=== PATIENT | male | born 1980 | race Hispanic/Latino ===

== ENCOUNTER 2016-07-02 12:52 | Day surgery (SDC) | payer OTHER ==
[~2016-07-02] VITALS: Ht 167.6 cm; Wt 78.0 kg
[~2016-07-02 12:52] MED LIST: 0.9% Sodium Chloride 1,000 ML IV SCH; NDL40T PO; PANT40TA3 PO; SULF500T5 PO; Sodium Chloride LOK Flush 10 mL Syringe IV PRN; fentaNYL-PF 50 mCg/mL 2 mL Inj IVPUSH PRN
[2016-07-02] MEDS ORDERED: fentaNYL-PF 50 mCg/mL 2 mL Inj ONE (12:53)
[2016-07-02] MEDS ORDERED: Glycopyrrolate 0.2 mg/mL 5 mL Inj ONE (12:53)
[2016-07-02] MEDS ORDERED: EPHEDrine/NS 5 mg/mL 5 mL Syringe ONE (12:53)
[2016-07-02] MEDS ORDERED: Propofol 10,000 mCg/mL 20 mL Inj ONE (12:53)
[2016-07-02] MEDS ORDERED: Atropine 0.4 mg/mL 5 mL Inj ONE (12:53)
[2016-07-02 13:19] VITALS: BP 134/89; PULSE 45; RESP 16; O2SAT 99
[2016-07-02] MEDS ORDERED: ADAL40PE SQ (13:19)
[2016-07-02] MEDS ORDERED: Ondansetron 2 mg/mL 2 mL Inj IVPUSH PRN (13:35)
[2016-07-02] MEDS ORDERED: MetoCLOpramide 5 mg/mL 2 mL Inj IVPUSH PRN (13:35)
[2016-07-02] MEDS ORDERED: Atropine 0.4 mg/mL Inj IVPUSH PRN (13:35)
[2016-07-02] MEDS ORDERED: Phenylephrine 10,000 mCg/mL Inj IVPUSH PRN (13:35)
[2016-07-02] MEDS ORDERED: HYDROmorphone 1 mg/mL Inj IVPUSH PRN (13:35)
[2016-07-02] MEDS ORDERED: Labetalol 5 mg/mL 4 mL Inj IV PRN (13:35)
[2016-07-02] MEDS ORDERED: EPHEDrine Sulfate 50 mg/mL Inj IVPUSH PRN (13:35)
[2016-07-02] MEDS ORDERED: fentaNYL-PF 50 mCg/mL 2 mL Inj IVPUSH PRN (13:35)
[2016-07-02] MEDS ORDERED: Dexamethasone 4 mg/mL Inj IVPUSH PRN (13:35)
[2016-07-02] MEDS ORDERED: Lactated Ringer's 1,000 ML IV ONE (13:35)
[2016-07-02] MEDS ORDERED: Lactated Ringer's 500 ML IV PRN (13:35)
[2016-07-02] MEDS ORDERED: Lactated Ringer's 1,000 ML IV SCH (13:35)
--- NOTE | 2016-07-02 13:40 | PCM.HPANE ---
Patient Data Date of Service: Jul 02, 2016 Surgeon Admitting Provider: Attending Provider:Ricardo Tafoya MD Primary Care Physician:Jerardo Wagner Other Provider: Reason for Visit Esophageal Varices Determined By Egd Ht/WT & BMI Height (Feet): 5 Height (Inches): 6 Weight (Kilograms): 78 Body Mass Index 27.00 Allergies Coded Allergies: hydrocodone bitartrate (Verified Allergy, Mild, Rash,Itching,, 07/02/16) NSAIDS (Non-Steroidal Anti-Inflamma (Verified Adverse Reaction, Severe, GI Bleed, 07/02/16) GI Bleed Past Anesthesia History Anesthesia History: Denies:: Abnormal Airway, Anesthesia Reactions, Difficult Intubation, Fam Anesthesia Reaction, Fam Malignant Hypertherm, Malignant Hyperthermia Diabetes History Hx Diabetes?: No MRSA MRSA: No Medications Home Meds Incl Beta Gloria: Yes Date Beta Gloria Taken: Jul 02, 2016 Time Beta Gloria Taken: 0800 Active Scripts Nadolol (Corgard)40 Mg Ruxekq56 Mg PO DAILY 30 Days Prov:Declan Montero MD 07/09/14 Reported Medications Adalimumab (Humira)40 Mg/0.8 Ml Pen.ij.kit40 Mg SQ TWICE MONTHLY 07/02/[address] 40 Mg Tablet.dr40 Mg PO DAILY Ref 0 06/27/15 Discontinued Reported Medications Sulfadiazine 500 Mg [id number] Mg PO QID 06/27/15 History History of ENT Problems?: No HEENT History: Positive for:: Sinus Problem ("seasonal allergies") Denies:: Abnormal Airway Cataracts Difficult Intubation Dysphagia Hearing Problem Hx of Heart Problems?: Yes Cardiovascular History: Positive for:: Edema (legs swelling) Heart Murmur Hypertension (pt states the HTN is resolved since no longer drinking ETOH) Denies:: AICD Atrial Fibrillation Cardiac Surgery Chest Pain Congestive Heart Failure Irregular Heartbeat Pacemaker Thrombophlebitis Valvular Heart Disease Hx of Respiratory Problem?: No Respiratory History: Denies:: Asthma COPD Chest Surgery Cough Dyspnea Emphysema Hemoptysis Pneumonia Tuberculosis Hx Neurologic Problems?: Yes Neurological History: Positive for:: Dizziness (since Saturday ) Headaches Seizures (associated with ETOH withdrawal. ) Denies:: Alzheimer's Disease CVA Dementia Parkinson's Disease Hx of GI Problems?: Yes Gastrointestinal History: Positive for:: Cirrhosis (ETOH) Gastrointestinal Bleeding (currently Upper GI bleed) Heartburn Hepatitis (ETOH) Rectal Bleeding (BLACK ) Denies:: Diverticulitis Gastroesphageal Reflux Hiatal Hernia Hx of Problems?: No Genitourinary History: Denies:: HX of Hemodialysis Kidney Stones Urinary Tract Infection HX of Peritoneal Dialysis: No Male Hx: Denies:: Prostate Problems Scrotal Mass Testicular Surgery Hx Musculoskeletal Problems?: Yes Musculoskeletal History: Positive for:: Back Injury (pt states chronic back pain. ) Musculoskeletal Trauma (R. 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) Psycho Social History: Positive for:: Hx Depression Denies:: Anxiety Bipolar Disorder Suicide Attempt Hx Surgeries?: Yes (ARM SURGERY CHILD) Hx Any Other Health Problems?: No Other History: Positive for:: Hospitalization (Alcoholic withdrawal, pancreatitis) Denies:: Cancer Endocrine Disease Thyroid Disease History Blood Transfusions: Denies:: Blood Transfuse Reaction Blood Transfusions Hx Diabetes: No Hx Alcohol Use: Yes ( SOBER FOR 3 YEARS)Hx Substance Use: No Smoking Status: Never Smoker Have You Smoked inLast 12 mo: No Stop/Bang Treated for Sleep Apnea?: No Do You Have a CPAP Machine?: No S-Snoring: Do You Snore Loudly: No T-Tired: feel tired, fatigued: No O-Obsered: Observed not breath: No P-Blood Pressure: treated: Yes B- Body Mass Index > 35 kg/m2: Yes A- Age over 50: No N- Neck Large Circumference: Yes G- Gender Male: Yes FELICITAS Total Score: 4 FELICITAS Risk Assessment: High Risk, =/>3 Yes FELICITAS Category 2: Yes Risk Assessment Category Category 1A: Patient has history of documented sleep apnea, and HAS NOT received any narcotic, sedative or anesthesia administration during this stay. Category 1B: Patient has history of documented sleep apnea, and HAS received any narcotic , sedative or anesthesia administration during this stay Category 2: Patient has SUSPECTED Obstructive Sleep Apnea, and HAS received any narcotic , sedative or anesthesia administration during this stay. Category 3: Patient has SUSPECTED Obstructive Sleep Apnea and HAS NOT received narcotic, sedative or anesthesia administration during this stay. Category 4: Outpatient in Procedural Areas with known sleep apnea or who screen positive for High Risk via the STOP/BANG questionnaire. Exam Exam Vital Signs Vital Signs Date Time Temp Pulse Resp B/P Pulse Ox O2 Delivery O2 Flow Rate FiO2 07/02/16 13:19 36.8 45 16 134/89 99 Room Air General Appearance: Alert, Oriented X3, Cooperative HEENT/AIRWAY: MP 2 Lungs: Normal Air Movement Heart: Normal S1, Normal S2 (RADYCARDIC) Plan Impression Patient chart reviewed, patient interviewed and anesthestic plan with risks, benefits, and alternatives discussed, and informed consent obtained. NPO Status: > 8 hrs ASA Physical Status: ASA3 Severe Disease Anesthetic Plan: MAC Bene/Risks/Altern/Consents: Yes HP Complete Prior to Induction: Yes Magdiel Ferreira DO Jul 02, 2016 13:40
[2016-07-02 14:45] VITALS: BP 112/72; PULSE 72; RESP 16; O2SAT 98
[2016-07-02 14:55] VITALS: BP 113/74; PULSE 62; RESP 16; O2SAT 97
--- NOTE | 2016-07-02 18:06 | PCM.ANEP1 ---
Post Anesthesia Phase 1 PACU Phase 1 Assessment Date of Service: Jul 02, 2016 Vital Signs Vital Signs Date Time Temp Pulse Resp B/P Pulse Ox O2 Delivery O2 Flow Rate FiO2 07/02/16 14:55 62 16 113/74 97 Room Air 07/02/16 14:45 72 16 112/72 98 Room Air 07/02/16 13:19 36.8 45 16 134/89 99 Room Air Anesthetic Administered: MAC Level of Alertness: Awake, talking EGAN's with Equal Strength: Yes Pain: No Nausea or Vomiting: No Oxygen Delivery: Room Air Lungs: Normal Air Movement Dermatome Level: Full Sensation Magdiel Ferreira DO Jul 02, 2016 18:06
--- NOTE | 2016-07-02 18:26 | PCM.ANEP2 ---
Post Anesthesia Evaluation ASA/CMS Post Anesthesia Date of Service: Jul 02, 2016 VS in Patient's Normal Range?: Yes Resp Stable; Airway Patent?: Yes CV Function & Hydration Stable: Yes Mental Status Recovered?: Yes Pain control Satisfactory?: Yes N/V Control Satisfactory?: Yes Magdiel Ferreira DO Jul 02, 2016 18:26
--- NOTE | 2016-07-03 01:33 | ENDO ---
[address] [address] ENDOSCOPY PROCEDURE PATIENT: ASIA MIRZA : 1980 MR#: [id number] ADMIT: 07/02/2016 JOB ID: [id number] PRIMARY PROVIDER: ANDRES Cunha PROCEDURE: Esophagogastroduodenoscopy with biopsies. INDICATIONS: A 36-year-old male with a history of cirrhosis, reporting for variceal surveillance. EQUIPMENT: [id number]. SEDATION: Monitored anesthesia as provided by Dr. Magdiel Ferreira. COMPLICATIONS: None identified. PROCEDURE INFORMATION: After the risks and benefits were explained, written and verbal informed consent was obtained. The patient was brought into the endoscopy suite and placed into the left lateral decubitus position. Sedation was achieved as above. The scope introduced into the mouth through the bite block, and advanced to the second portion of the duodenum. The scope was slowly withdrawn to carefully examine the mucosa for any defects or lesions. Retroflexed views were accomplished in the stomach. The stomach was decompressed, the scope removed from the patient who tolerated the procedure well. FINDINGS: 1. Duodenum: No pathology identified from the bulb through to the second portion. 2. Stomach: The patient had some scattered erosive changes through the antrum and one of the eroded areas had a slight nodule, and I biopsied this for histopathology and for exclusion of Helicobacter infection. Otherwise, no significant pathology was seen throughout the stomach including retroflexed views of the LES. No varices appreciated. 3. Esophagus: The squamocolumnar junction correlated with the top of the gastric folds. The GEJ was at about 40 cm from the incisors. In the distal esophagus, there was evidence of grade 1 to grade 2, at most, varices. No stigmata of recent bleeding. No high risk stigmata. The remainder of the esophagus appeared unremarkable. ENDOSCOPIC DIAGNOSES: 1. Grade 1 to grade 2 distal esophageal varices. 2. Erosive and nodular gastropathy. 3. Otherwise visually unremarkable esophagogastroduodenoscopy. RECOMMENDATIONS: 1. Await histopathology. 2. If Helicobacter is found, it will need to be eradicated with standard triple therapy. 3. Repeat EGD with anesthesia in two years. 4. Continue nadolol.
--- NOTE | 2016-07-05 14:09 | PATH ---
SURGICAL PATHOLOGY Attending Physician:Bridgette Silverio CASE STATUS: Signed Out PATIENT NAME: ASIA MIRZA PID: [id number] : 1980 DATE COLLECTED:07/02/2016 00:00 SPECIMEN: Stomach, Antrum, Biopsy CLINICAL HISTORY: 1).ANTRUM NODULE FINAL DIAGNOSIS: 1.GASTRIC ANTRUM NODULE: REACTIVE GASTROPATHY, ANTRAL MUCOSA, MODERATE. NEGATIVE FOR INTESTINAL METAPLASIA BY ALCIAN BLUE STAIN. NEGATIVE FOR HELICOBACTER ORGANISMS BY IMMUNOHISTOCHEMICAL STAINS. NEGATIVE FOR DYSPLASIA AND MALIGNANCY. ICD10 CODE K29.70 GROSS DESCRIPTION: The specimen is received in one formalin filled container labeled with the patient's name, sublabeled "antrum nodule" and consists of a 0.4 x 0.4 x 0.4 CM portion of tissue which is entirely submitted in one cassette. 07/03/2016 [facility] MICRO DESCRIPTION: Sections are of gastric antral mucosa with moderate reactive gastropathy. No intestinal metaplasia or Helicobacter organisms are identified on H&E stains. An Alcian blue stain is performed to further evaluate for the presence of intestinal metaplasia. The patient tissue shows no staining typical of intestinal metaplasia. The positive control stains appropriately. Immunohistochemical stains for Helicobacter pylori are performed using polyclonal antibody to Helicobacter pylori. The patient tissue shows the following results. The positive control stains appropriately. Result: The patient tissue shows no staining. Interpretation: The gastric mucosa is negative for Helicobacter organisms by immunohistochemical stains. This test was developed and its performance characteristics determined by [facility]. It has not been cleared or approved by the [place]. Food and Drug Administration. The FDA has determined that such clearance or approval is not necessary. This test is used for clinical purposes. It should not be regarded as investigational or for research. ICD-9 CODES: CPT CODES: 1: 21669, 74381, 80805 Electronically Signed Out Jayda Tom MD [facility] Pathology [facility] [address], [place] [address] Technical component performed at [facility], [address], [place], [address]
== END 2016-07-02 23:59 | disposition home or self-care (01) ==
LOC: END 12:52
PROVIDERS: ATTEND Internal Medicine Gastroenterology
DX: I85.00 Esophageal varices without bleeding (principal); K70.30 Alcoholic cirrhosis of liver without ascites; I85.10 Secondary esophageal varices without bleeding; K31.9 Disease of stomach and duodenum, unspecified; K70.10 Alcoholic hepatitis without ascites; L40.50 Arthropathic psoriasis, unspecified; I10 Essential (primary) hypertension
CPT/HCPCS: 43239; J0461; J3010; J7120